=== PATIENT | female | born 1995 | race Caucasian/White ===

== ENCOUNTER → 2025-03-24 07:35 | Outpatient (CLI) | payer OTHER, SELFPAY ==
--- NOTE | 2025-03-24 07:40 | DI.MRI.S_ITS ---
PROCEDURE: MR LUMBAR SPINE WO CON INDICATIONS: pain; foot drop TECHNIQUE: Noncontrast sagittal T1 spin echo and T2 fast echo, sagittal STIR, and T2 fast spin echo through the lumbar spine. In cases with scoliosis, additional coronal T2 fast spin echo may be performed. COMPARISON: None. FINDINGS: Image quality: Excellent. Alignment and Curvature: There is normal bony alignment. Bone Marrow: Marrow is of normal overall signal. No acute vertebral body compression fractures. Spinal Cord: Conus medullaris terminates at the L1 level. Visualized cord demonstrates normal signal and size. Paraspinous Soft Tissues: No paravertebral masses. T12-L1: Normal appearance. L1-L2: Normal appearance. L2-L3: Normal appearance. L3-L4: Loss of disc signal. Mild, diffuse disc bulge. Mild bilateral facet hypertrophy. Mild narrowing of the central canal. Mild bilateral neural foraminal narrowing. No neural compression. L4-L5: Disc has a normal appearance. Mild bilateral facet hypertrophy. No central stenosis. No neural foraminal narrowing. No neural compression. L5-S1: Disc has a normal appearance. Mild bilateral facet hypertrophy. No central stenosis. No neural foraminal narrowing. No neural compression. IMPRESSION: Mild L3-L4 degenerative disc disease. Mild L3-L4, L4-L5 and L5-S1 facet arthropathy. No severe central canal stenosis or severe neural foraminal stenosis. No neural compression. Dictated by: Julissa Gottlieb MD, PhD on 03/24/2025 at 12:06 Approved by: Julissa Gottlieb MD, PhD on 03/24/2025 at 12:09
== END ==
PROVIDERS: Visit Provider Neurological Surgery
DX: M21.371 Foot drop, right foot (principal); M43.16 Spondylolisthesis, lumbar region; M51.369 Other intervertebral disc degeneration, lumbar region without mention of lumbar back pain or lower extremity pain; M47.816 Spondylosis without myelopathy or radiculopathy, lumbar region; M47.817 Spondylosis without myelopathy or radiculopathy, lumbosacral region
CPT/HCPCS: 72148

== ENCOUNTER → 2025-05-13 11:29 | Outpatient (CLI) | payer OTHER, SELFPAY ==
--- NOTE | 2025-05-13 11:30 | DI.CT.S_ITS ---
PROCEDURE: CT THORACIC SPINE WO CON INDICATIONS: Pars Fracture - robo spine protocol TECHNIQUE: Noncontrast 3 mm thick sections acquired through the region of interest in the thoracic spine. Sagittal and coronal reformats were then constructed. For radiation dose reduction, the following was used: automated exposure control. COMPARISON: None. FINDINGS: Image quality: Excellent. Bones: There is normal overall bony alignment. No acute vertebral body compression fractures. No suspicious sclerotic or lytic bony lesions. Central spinal canal is of normal overall caliber. Soft tissues: No paravertebral masses or hematomas. Visualized posteromedial lungs appear clear. IMPRESSION: Unremarkable CT thoracic spine Approved by: Enrique Maldonado M.D. on 05/13/2025 at 15:23
--- NOTE | 2025-05-13 11:30 | DI.CT.S_ITS ---
PROCEDURE: CT LUMBAR SPINE WO CON INDICATIONS: Pars Fracture - robo spine protocol TECHNIQUE: Noncontrast 3 mm thick sections acquired from the T12 level to the sacrum. Sagittal and coronal reformats were constructed. For radiation dose reduction, the following was used: automated exposure control. COMPARISON: None. FINDINGS: Image quality: Excellent. Bones: There is normal bony alignment. No acute vertebral body compression fractures. No suspicious lytic or blastic bony lesions. No pars defects. Nondisplaced bilateral L5 pars defects appears at least partially healed and sclerotic on the left. No central or foraminal stenosis throughout the exam Soft tissues: No retroperitoneal masses or hematomas. Visualized aorta is normal in caliber. IMPRESSION: Nondisplaced L5 spondylolysis without evidence of spondylolisthesis Approved by: Enrique Maldonado M.D. on 05/13/2025 at 15:21
== END ==
LOC: CT 11:29
PROVIDERS: Referring Provider Neurological Surgery; Visit Provider Neurological Surgery
DX: S32.058A Other fracture of fifth lumbar vertebra, initial encounter for closed fracture (principal); M43.06 Spondylolysis, lumbar region; X58.XXXA Exposure to other specified factors, initial encounter
CPT/HCPCS: 72128; 72131

== ENCOUNTER 2025-05-22 10:08 | Emergency (ER) | payer OTHER, SELFPAY ==
[2025-05-22 10:39] VITALS: BP 137/80; PULSE 121; RESP 16; TEMP 36.8; O2SAT 100; BMI 30.4
--- NOTE | 2025-05-22 10:42 | ED.GENADULT ---
HPI - General Adult General Chief complaint: Headache Stated complaint: Severe migraine following back surgery Time Seen by Provider: 05/22/25 10:35 History of Present Illness HPI narrative: 30-year-old female recently had back surgery since with migraine attack that started yesterday which lights and sounds bother her she is nauseous, vomiting, diarrhea, constipation, chest pain, shortness breath, cough, blurred vision, loss of consciousness, dizziness, fever, chills, body aches, stiff neck, or rash. Nothing makes it better or worse. She used to get Botox injections. Other than what is stated 14 point review of system is negative. Related Data Allergies Allergy/AdvReac Type Severity Reaction Status Date / Time bupropion (From Wellbutrin) Allergy Unknown Verified 05/22/25 10:39 phentermine Allergy Unknown Verified 05/22/25 10:39 Review of Systems Review of Systems ROS Unobtainable: All systems reviewed & are unremarkable except as noted in HPI and below Patient History Social History Smoking Status: Never smoker Exam Narrative Exam Narrative: GENERAL: [30] year old patient appears stated age. Well-developed patient, in mild distress. HEAD: Atraumatic. Normocephalic. EYES: Pupils equal round and reactive. Extraocular motions intact. No scleral icterus. No injection or drainage. ENT: Nose without bleeding, purulent drainage. Throat without erythema, tonsillar hypertrophy or exudate. Airway patent. NECK: Trachea midline. Non tender CARDIOVASCULAR: Regular rate and rhythm without murmurs, gallops, or rubs. RESPIRATORY: Clear to auscultation. Breath sounds equal bilaterally. No wheezes, rales, or rhonchi. GASTROINTESTINAL: Abdomen soft, non-tender, nondistended. EXTREMITIES: No edema or joint tenderness. BACK: Nontender without deformity or crepitance. No flank tenderness. NEURO: AOx3. SKIN: No rash or erythema of visible areas Initial Vital Signs Initial Vital Signs: Vital Signs Temperature 98.2 F 05/22/25 10:39 Pulse Rate 121 H 05/22/25 10:39 Respiratory Rate 16 05/22/25 10:39 Blood Pressure 137/80 05/22/25 10:39 Pulse Oximetry 100 05/22/25 10:39 Oxygen Delivery Method Room Air 05/22/25 10:39 Course Orders Ordered: Discontinued Medications Dexamethasone (Dexamethasone 10 Mg/Ml Vial) 10 mg IV NOW ONE Stop: 05/22/25 10:42 Last Admin: 05/22/25 10:55 Dose: 10 mg Documented By: SGF Diphenhydramine HCl (Diphenhydramine 50 Mg/Ml Vial) 50 mg IV NOW ONE Stop: 05/22/25 10:42 Last Admin: 05/22/25 10:56 Dose: 50 mg Documented By: SGF Droperidol (Droperidol 2.5 Mg/Ml Vial) 2.5 mg IV NOW ONE Stop: 05/22/25 10:42 Last Admin: 05/22/25 10:55 Dose: 2.5 mg Documented By: SGF Lactated Ringer's (Lactated Ringers) 1,000 mls @ 1,000 mls/hr IV BOLUS ONE Stop: 05/22/25 11:40 Last Admin: 05/22/25 10:56 Dose: 1,000 mls/hr Documented By: KELECHIF Ketorolac Tromethamine (Ketorolac 30 Mg/Ml Vial) 15 mg IV NOW ONE Stop: 05/22/25 10:42 Last Admin: 05/22/25 10:56 Dose: 15 mg Documented By: KEELCHIF Vital Signs Vital signs: Vital Signs - 8 hr 05/22/25 10:39 05/22/25 11:00 05/22/25 11:00 Temperature 98.2 F Pulse Rate 121 H 98 H Respiratory Rate 16 16 Blood Pressure 137/80 112/61 Pulse Oximetry 100 99 Oxygen Delivery Method Room Air Room Air Medical Decision Making MDM Narrative Additional Information: All lab work, vital signs, nurse triage note, medication list, previous ER visits, and all imaging studies reviewed. Patient given fluids Decadron Toradol Benadryl droperidol here. Patient feels much better on reexamination. Differential diagnosis migraine viral dehydration. Discharge Plan Departure Patient Disposition: Home Clinical Impression: Migraine Instructions: DI for Migraine Activity Restrictions/Additional Instructions: Return with new or worsening symptoms. Follow up PCP next week if no improvement in symptoms. Keep hydrated. Referrals: [facility] [Primary Care Provider, Family Practice] Stand Alone Forms: Patient Portal/API
[2025-05-22] MEDS: droPERidol 2.5 MG/ML VIAL IV (10:55)
[2025-05-22] MEDS: KETOROLAC 30 MG/ML VIAL 15 MG IV (10:56)
[2025-05-22] MEDS: diphenhydrAMINE 50 MG/ML VIAL IV (10:56)
[2025-05-22] MEDS: LACTATED RINGERS 1,000 ML 1000 ML IV (10:56)
[2025-05-22 11:00] VITALS: BP 112/61; PULSE 98; RESP 16; O2SAT 99
[2025-05-22 11:30] VITALS: BP 112/64; PULSE 84; RESP 18; O2SAT 99
[2025-05-22 12:00] VITALS: BP 106/64; PULSE 100; RESP 17; O2SAT 99
[2025-05-22 12:41] VITALS: BP 106/64
== END 2025-05-22 12:41 | disposition home or self-care (01) ==
PROVIDERS: Emergency Provider Family Medicine
DX: G43.909 Migraine, unspecified, not intractable, without status migrainosus (principal); Z98.890 Other specified postprocedural states
CPT/HCPCS: 96374; 96375; 99284; J1100; J1200; J1790; J1885; J7120

== ENCOUNTER → 2025-06-07 11:29 | Outpatient (CLI) | payer OTHER, SELFPAY ==
--- NOTE | 2025-06-07 11:33 | DI.RAD.S_ITS ---
PROCEDURE: XR LUMBAR SPINE 2-3V INDICATIONS: POST OP LOWER BACK PAIN TECHNIQUE: 3 views of the lumbar spine were acquired. COMPARISON: None. FINDINGS: Bones: 5 [id number] vertebrae are present. There is normal bony alignment. No vertebral body compression fractures. No suspicious bony lesions. Right-sided pedicle screw at L5. Mild degenerative changes, notably at L3-4. Soft tissues: Overlying bowel gas pattern is normal. No suspicious soft tissue calcifications. IMPRESSION: Right-sided pedicle screw at L5, without hardware complication. Dictated by: Iain Freire M.D. on 06/07/2025 at 16:44 Approved by: Iain Freire M.D. on 06/07/2025 at 16:45
== END ==
PROVIDERS: Referring Provider Neurological Surgery; Visit Provider Neurological Surgery
DX: S32.058A Other fracture of fifth lumbar vertebra, initial encounter for closed fracture (principal)
CPT/HCPCS: 72100